=== PATIENT | female | born 1970 | race Caucasian/White ===

== ENCOUNTER 2019-06-15 07:09 | Emergency (ER) | payer MEDICAID ==
[~2019-06-15] VITALS: Ht 162.6 cm; Wt 104.3 kg
[2019-06-15 07:13] VITALS: BP_SYST 197
[2019-06-15] MEDS ORDERED: KETOROLAC TROMETHAMINE 60 MG/2 ML VIAL IM ONE (08:15)
[2019-06-15] MEDS ORDERED: BACITRACIN 1 GM OINT TP ONE ×2 (08:30→08:43)
[2019-06-15 09:05] VITALS: BP_SYST 190
== END 2019-06-15 09:05 | disposition home or self-care (01) ==
LOC: SED 07:09
DX: L03.111 Cellulitis of right axilla (principal); E11.9 Type 2 diabetes mellitus without complications; I10 Essential (primary) hypertension; Z90.89 Acquired absence of other organs
CPT/HCPCS: 82962; 96372; 99283; J1885